=== PATIENT | male | born 1960 | race Caucasian/White ===

== ENCOUNTER → 2019-04-18 | Outpatient (CLI) | payer MEDICARE, OTHER ==
--- NOTE | 2019-04-18 21:43 | PCVCIMAG ---
EXAM: BILATERAL LOWER EXTREMITY ARTERIAL DUPLEX INDICATION: Peripheral Arterial Disease. Leg pain. Nonhealing ulcers lower legs. FINDINGS: Right Leg: Common femoral profunda femoral arteries are patent. 50-60% stenosis distal craig superficial femoral artery. Popliteal artery is patent. Occlusion of the peroneal and posterior tibial arteries. Anterior tibial artery is patent. Left Leg: Common femoral profunda femoral arteries are patent. Superficial femoral artery and popliteal artery are patent. Anterior tibial artery is patent. The peroneal and posterior tibial arteries are occluded. IMPRESSION: 50-60% stenosis distal craig right superficial femoral artery. 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 Occlusion of the left peroneal and posterior tibial arteries. LOC:OFFICE
== END | disposition home or self-care (01) ==
LOC: PCVCIMAG 15:27
PROVIDERS: ATTEND Emergency Medicine
DX: I73.9 Peripheral vascular disease, unspecified (principal); L97.909 Non-pressure chronic ulcer of unspecified part of unspecified lower leg with unspecified severity
CPT/HCPCS: 93925